=== PATIENT | male | born 1980 | race Caucasian/White ===

== ENCOUNTER 2017-12-10 20:10 | Emergency (ER) | payer SELFPAY ==
--- NOTE | 2017-12-10 21:07 | RADIOLOGY REPORT (SQ) ---
EXAM DESCRIPTION: L SPINE WHOLE COMPLETED DATE/TIME: 12/10/2017 8:55 pm REASON FOR STUDY: low back pain COMPARISON: None. NUMBER OF VIEWS: Five views including obliques. TECHNIQUE: AP, lateral, oblique, and sacral radiographic images acquired of the lumbar spine. LIMITATIONS: None. FINDINGS: MINERALIZATION: Normal. SEGMENTATION: Normal. No transitional anatomy. ALIGNMENT: Mild levo scoliosis in the lower thoracic spine. VERTEBRAE: Maintained height. No fracture or worrisome bone lesion. DISCS: Preserved height. No significant osteophytes or end plate irregularity. POSTERIOR ELEMENTS: Pedicles and facets are intact. No pars defect or posterior arch defects. HARDWARE: None in the spine. PARASPINAL SOFT TISSUES: Normal. PELVIS: Intact as visualized. No fractures or worrisome bone lesions. SI joints intact. OTHER: No other significant finding. IMPRESSION: Mild lower thoracic scoliosis. TECHNICAL DOCUMENTATION: JOB ID: [id number] [employer]- All Rights Reserved Reading location - IP/workstation name: [email or web address]
[2017-12-10] MEDS ORDERED: KETOROLAC TROMETHAMINE INJ/PF 30 MG/1 ML SDV IM ONE (22:04)
--- NOTE | 2017-12-10 22:09 | ER Document Report ---
ED Neck/Back Problem - General Chief Complaint: Low Back Pain Stated Complaint: LOWER BACK PAIN Time Seen by Provider: 12/10/17 20:31 Mode of Arrival: Ambulatory Information source: Patient TRAVEL OUTSIDE OF THE [place] IN LAST 30 DAYS: No - HPI Patient complains to provider of: Pain, Lower back Notes: Patient is here with complaints of low back pain. He states that it has been hurting for about a month and a half now. No specific injury. The pain seems to be intermittent. In the left lower back radiating into the left butt cheek. No trauma. No fall. He denies any abdominal pain. He denies any nausea, vomiting, diarrhea. No dysuria or hematuria. Pain is worse with certain movements, better with rest. States that he recently moved back here from [place] is been sleeping on an air mattress. He denies any chest pain or shortness of breath. He denies any bowel or bladder dysfunction. He denies IV drug use. He denies diabetes. He denies any immunosuppression. Is been taking ibuprofen occasionally which seems to help sometimes with the pain. He denies any unilateral numbness, tingling, weakness. No fevers. He denies any other complaints at this time. Past Medical History - Social History Smoking Status: Current Every Day Smoker Chew tobacco use (# tins/day): No Frequency of alcohol use: None Drug Abuse: None Family History: Reviewed & Not Pertinent Patient has suicidal ideation: No Patient has homicidal ideation: No Renal/ Medical History: Denies: Hx Peritoneal Dialysis Review of Systems - Review of Systems -: Yes All other systems reviewed and negative Physical Exam - Vital signs Vitals: Temp Pulse Resp BP Pulse Ox 98.4 F 83 20 131/78 H 95 12/10/17 20:15 12/10/17 20:15 12/10/17 20:15 12/10/17 20:15 12/10/17 20:15 - Notes Notes: GENERAL: alert, cooperative, nontoxic, no distress. HEAD: normocephalic, atraumatic EYES: conjunctiva pink without discharge, no external redness or swelling. EARS: no external swelling, no external redness NOSE: atraumatic, no external swelling MOUTH/THROAT: mucous membranes moist and pink, posterior pharynx without erythema, swelling, exudate. No trismus or drooling. NECK: soft, supple, full range of motion, no meningismus. CHEST: no distress, lungs clear and equal throughout. No wheezing, rales, rhonchi. CARDIAC: regular rate and rhythm, no murmur, normal capillary refill, normal pulses. No peripheral edema noted. ABDOMEN: soft, nontender, no pusatile mass. BACK: No CVA tenderness. Mild tenderness palpation of the left lumbar paraspinal muscles. No midline tenderness step-offs or crepitus. Full range of motion. EXTREMITIES: full range of motion of all extremities. No redness, no swelling. NEURO: alert and oriented A&O x 3, no focal deficits, full range of motion of all extremities. 5 out of 5 flexion and extension of the lower extremities bilaterally. Patellar and Achilles deep tendon reflexes are +2 bilaterally. Normal sensation with no saddle anesthesia. Patient can dorsiflex the great toes bilaterally. PYSCH: appropriate mood, affect. Patient is cooperative. SKIN: pink, warm, dry, no rash. Course - Re-evaluation Re-evalutation: 12/10/17 22:07 Patient is nontoxic-appearing with stable vitals. Is here with complaints of low back pain intermittently for about a month and a half now. He recently moved here from [place] been sleeping on an air mattress. He denies any specific injury or fall. He has no sign or risk of cauda equina, epidural abscess/bleed, osteomyelitis, discitis, AAA, pyelonephritis. He has a nonfocal exam with no neurological deficits. No abdominal pain or tenderness. He has some mild tenderness to the lumbar paraspinal muscles. X-ray shows some mild scoliosis of the thoracic spine but no acute abnormalities. Patient likely is experiencing some muscular skeletal back pain, potentially from a combination of having scoliosis and sleeping on an air mattress. The patient will be discharged home with a prescription for Naprosyn. He is instructed to get established with a primary care doctor. Follow-up if not better in the next week, sooner for worsening pain, fever, numbness, tingling, weakness, difficulty controlling bowels or bladder, or for any further concerns. The patient is noted to have elevated blood pressure during today's emergency department visit. The patient was informed of this finding. The patient was instructed that this may be related to pre-hypertension and requires further evaluation with a primary care provider. The patient has no hypertensive symptoms at this time. The patient's emergency department workup and current diagnosis were explained to the patient and or family. Follow-up instructions were provided. Medications if prescribed were discussed. Instructions for when to return to the emergency department including specific worrisome symptoms were discussed with the patient and/or family. - Vital Signs Vital signs: Temp Pulse Resp BP Pulse Ox 98.4 F 83 20 131/78 H 95 12/10/17 20:15 12/10/17 20:15 12/10/17 20:15 12/10/17 20:15 12/10/17 20:15 - Diagnostic Test Radiology reviewed: Image reviewed, Reports reviewed - Thoracic scoliosis, no acute abnormality of the lumbar spine. Discharge - Discharge Clinical Impression: Low back pain Qualifiers: Chronicity: chronic Back pain laterality: left Sciatica presence: with sciatica Sciatica laterality: sciatica of left side Qualified Code(s): M54.42 - Lumbago with sciatica, left side; G89.29 - Other chronic pain; G89.29 - Other chronic pain Condition: Stable Disposition: HOME, SELF-CARE Instructions: Low Back Pain ([facility]) Additional Instructions: Take medications as prescribed. Do not take ibuprofen or Advil while taking this medication. Take Tylenol as needed for pain. Apply ice or heat to sore area. Get established with a primary care doctor at the next available appointment. Follow-up sooner for worsening pain, fever, numbness, tingling, weakness, bowel or bladder dysfunction, abdominal pain, persistent vomiting, or for any further concerns. Your blood pressure was elevated during today's visit. Have this rechecked with your doctor. Prescriptions: Naproxen [Naprosyn] 500 mg PO BID #20 tablet Forms: Elevated Blood Pressure, Smoking Cessation Education Referrals: [facility] [Provider Group] - Follow up as needed
[2017-12-10 22:30] VITALS: BP 129/78
== END 2017-12-10 22:29 | disposition home or self-care (01) ==
LOC: ER 20:10
DX: M54.5 Low back pain (principal); G89.29 Other chronic pain; M41.9 Scoliosis, unspecified; R03.0 Elevated blood-pressure reading, without diagnosis of hypertension; F17.200 Nicotine dependence, unspecified, uncomplicated
CPT/HCPCS: 99283; 96372; 72110; J1885

== ENCOUNTER 2018-10-03 23:24 | Emergency (ER) | payer OTHER ==
--- NOTE | 2018-10-04 01:11 | ER Document Report ---
ED Medical Screen (RME) - General Chief Complaint: Chemical Exposure Stated Complaint: WC/CHEMICAL EXPOSURE Time Seen by Provider: 10/04/18 01:06 Notes: Patient is a 37-year-old male that comes emergency department for chief complaint of right-sided chest discomfort. 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 He denies shortness of breath, swelling of the throat or tongue, irritation of the eyes. He smokes, he denies any medical history diagnosed. TRAVEL OUTSIDE OF THE [place] IN LAST 30 DAYS: No Past Medical History - Social History Chew tobacco use (# tins/day): No Frequency of alcohol use: Social Drug Abuse: None Renal/ Medical History: Denies: Hx Peritoneal Dialysis Physical Exam - Vital signs Vitals: Temp Pulse Resp BP Pulse Ox 97.7 F 71 20 129/80 H 96 10/03/18 23:33 10/03/18 23:33 10/03/18 23:33 10/03/18 23:33 10/03/18 23:33 - Respiratory Respiratory status: No respiratory distress Chest status: Tender - right sided Breath sounds: No: Decreased air movement, Wheezing Course - Re-evaluation Re-evalutation: Patient reporting mild right-sided chest discomfort. There is some pain with palpation over the right side of the chest as well. Perform a chest x-ray and EKG. Patient without tachypnea, wheezing, or signs of distress. No signs of allergic reaction. I have greeted and performed a rapid initial assessment of this patient. A comprehensive ED assessment and evaluation of the patient, analysis of test results and completion of the medical decision making process will be conducted by additional ED providers. - Vital Signs Vital signs: Temp Pulse Resp BP Pulse Ox 97.7 F 71 20 129/80 H 96 10/03/18 23:33 10/03/18 23:33 10/03/18 23:33 10/03/18 23:33 10/03/18 23:33
--- NOTE | 2018-10-04 01:58 | RADIOLOGY REPORT (SQ) ---
XR CHEST 2 VIEWS HISTORY: Right-sided chest pain. COMPARISON: None. FINDINGS: The heart size is normal. No consolidation, pleural effusion, or pneumothorax is seen. Moderate dextroconvex curvature of the thoracic spine is noted. No displaced rib fractures are seen. IMPRESSION: 1. No evidence of acute cardiopulmonary disease. 2. No displaced rib fractures are seen. However, if there is high concern for acute injury, consider dedicated rib series or noncontrast chest CT scan.
--- NOTE | 2018-10-04 03:20 | ER Document Report ---
ED General - General Chief Complaint: Chemical Exposure Stated Complaint: WC/CHEMICAL EXPOSURE Time Seen by Provider: 10/04/18 01:06 Notes: Patient is a 37-year-old male current everyday smoker, no chronic medical problems presents with concerns of difficulty breathing while being exposed to acrylic at his job. States that his symptoms started relatively abruptly, were constant in onset but have now resolved. Describes him as being severe when present. Patient states that he no longer has symptoms after being away from the irritant but when he was around the chemical he states that he felt somewhat short of breath, had coughing. In triage he stated that he had chest discomfort but denies this to me. Nothing seems to make his symptoms go away other than getting away from the exposure. He denies history of similar symptoms in the past. No known history of asthma. Does continue to smoke. TRAVEL OUTSIDE OF THE [place] IN LAST 30 DAYS: No Past Medical History - General Information source: Patient - Social History Smoking Status: Current Every Day Smoker Chew tobacco use (# tins/day): No Frequency of alcohol use: Social Drug Abuse: None Family History: Reviewed & Not Pertinent Patient has suicidal ideation: No Patient has homicidal ideation: No Renal/ Medical History: Denies: Hx Peritoneal Dialysis Review of Systems - Review of Systems Notes: Constitutional: Negative for fever. HENT: Negative for sore throat. Eyes: Negative for visual changes. Cardiovascular: Negative for chest pain. Respiratory: Positive for shortness of breath now resolved Gastrointestinal: Negative for abdominal pain, vomiting or diarrhea. Genitourinary: Negative for dysuria. Musculoskeletal: Negative for back pain. Skin: Negative for rash. Neurological: Negative for headaches, weakness or numbness. 10 point ROS negative except as marked above and in HPI. Physical Exam - Vital signs Vitals: Temp Pulse Resp BP Pulse Ox 97.7 F 71 20 129/80 H 96 10/03/18 23:33 10/03/18 23:33 10/03/18 23:33 10/03/18 23:33 10/03/18 23:33 Interpretation: Normal Notes: PHYSICAL EXAMINATION: GENERAL: Well-appearing, well-nourished and in no acute distress. HEAD: Atraumatic, normocephalic. EYES: Pupils equal round and reactive to light, extraocular movements intact, sclera anicteric, conjunctiva are normal. ENT: nares patent, oropharynx clear without exudates. Moist mucous membranes. NECK: Normal range of motion, supple without lymphadenopathy LUNGS: Breath sounds clear to auscultation bilaterally and equal. No wheezes rales or rhonchi. HEART: Regular rate and rhythm without murmurs ABDOMEN: Soft, nontender, normoactive bowel sounds. No guarding, no rebound. No masses appreciated. EXTREMITIES: Normal range of motion, no pitting or edema. No cyanosis. NEUROLOGICAL: No focal neurological deficits. Moves all extremities spontaneously and on command. PSYCH: Normal mood, normal affect. SKIN: Warm, Dry, normal turgor, no rashes or lesions noted. 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 He states that now that he has been away from the exposure he no longer has any symptoms would like to go home. He is not having any labored breathing on exam, saturations within acceptable ranges. No tachycardia or tachypnea. Denies chest pain to me although apparently reported this to the triage physician quality control assistant. Chest x-ray is clear. EKG unremarkable. Suspect likely reactive airway in the setting of exposure to noxious fumes. Patient states that he is going to quit this worksite and not go back I have advised that he could likely use a respirator but he does not seem interested in this. At this time will discharge with return precautions and follow-up recommendations. Verbal discharge instructions given a the bedside a nd opportunity for questions given. Medication warnings reviewed. Patient is in agreement with this plan and has verbalized understanding of return precautions and the need for primary care follow-up in the next 24-72 hours. - Vital Signs Vital signs: Temp Pulse Resp BP Pulse Ox 98.9 F 69 17 131/79 H 97 10/04/18 03:36 10/04/18 03:36 10/04/18 03:36 10/04/18 03:36 10/04/18 03:36 - Diagnostic Test Radiology reviewed: Image reviewed, Reports reviewed Radiology results interpreted by me: 10/04/18 03:19 Chest x-ray: No acute infiltrate or pneumothorax Discharge - Discharge Clinical Impression: Shortness of breath Reactive airway disease Qualifiers: Asthma severity: mild Asthma persistence: intermittent Asthma complication type: uncomplicated Qualified Code(s): J45.20 - Mild intermittent asthma, uncomplicated Condition: Good Disposition: HOME, SELF-CARE Additional Instructions: Your chest x-ray and exam are normal today. Please wear a respirator while at work which would likely prevent her symptoms. Return for any additional concerns he may have including shortness of breath, persistent coughing, passing out, or any other symptoms that are worrisome to you.
[2018-10-04 03:37] VITALS: BP 131/79
--- NOTE | 2018-10-04 09:52 | EKG REPORT ---
SEVERITY:- NORMAL ECG - SINUS RHYTHM : Confirmed by: An Carrero 04-Oct-2018 09:51:32
== END 2018-10-04 03:37 | disposition home or self-care (01) ==
LOC: ER 23:24
DX: J45.20 Mild intermittent asthma, uncomplicated (principal); R06.00 Dyspnea, unspecified; R06.02 Shortness of breath; F17.200 Nicotine dependence, unspecified, uncomplicated; Y99.0 Civilian activity done for income or pay
CPT/HCPCS: 71046; 93005; 93010; 99283

== ENCOUNTER 2019-09-25 06:35 | Emergency (ER) | payer SELFPAY ==
--- NOTE | 2019-09-25 07:01 | ER Document Report ---
ED General - General Chief Complaint: Headache Stated Complaint: COUGH,SHORTNESS OF BREATH Time Seen by Provider: 09/25/19 06:40 Notes: Patient is a 38-year-old male that comes emergency department for chief complaint of "just feeling kind of bad". He states that he had some aches in his back, and a mild headache, he took ibuprofen this morning without eating after he had been drinking tequila last night, he states that he started feeling queasy, got nauseated, felt a discomfort in his abdomen and up into the chest with this which started to make him feel slightly short of breath. He also states his eye especially on the right has been dry this morning. He denies eye pain, visual loss, discharge from the eye, sore throat, or any current symptoms. He denies recent travel, fever/chills, ill exposures. He denies any daily medications, smoking, recreational drugs, surgeries, or diagnosed medical history. He denies any current symptoms. TRAVEL OUTSIDE OF THE [place] IN LAST 30 DAYS: No - Related Data Allergies/Adverse Reactions: No Known Allergies Allergy (Unverified 09/25/19 06:47) Past Medical History - General Information source: Patient - Social History Smoking Status: Never Smoker Chew tobacco use (# tins/day): No Frequency of alcohol use: Social Drug Abuse: None Lives with: Family Family History: Reviewed & Not Pertinent Patient has suicidal ideation: No Patient has homicidal ideation: No - Medical History Medical History: Negative Renal/ Medical History: Denies: Hx Peritoneal Dialysis Surgical Hx: Negative - Immunizations Immunizations up to date: Yes Hx Diphtheria, Pertussis, Tetanus Vaccination: Yes Review of Systems - Review of Systems Constitutional: See HPI EENT: See HPI Cardiovascular: See HPI Respiratory: See HPI Gastrointestinal: See HPI Genitourinary: No symptoms reported Male Genitourinary: No symptoms reported Musculoskeletal: No symptoms reported Skin: No symptoms reported Hematologic/Lymphatic: No symptoms reported Neurological/Psychological: No symptoms reported Physical Exam - Vital signs Vitals: Temp Pulse Resp BP Pulse Ox 97.5 F 57 L 16 126/81 H 100 09/25/19 06:45 09/25/19 06:45 09/25/19 06:45 09/25/19 06:45 09/25/19 06:45 - Notes Notes: GENERAL: Alert, interacts well. No acute distress. HEAD: Normocephalic, atraumatic. EYES: Pupils equal, round, and reactive to light. Extraocular movements intact. ENT: Oral mucosa moist, tongue midline. Oropharynx unremarkable. Airway patent. Nares patent, sinuses non-tender, ear canals unremarkable, TM's intact. NECK: Full range of motion. Supple. Trachea midline. No lymphadenopathy. LUNGS: Clear to auscultation bilaterally, no wheezes, rales, or rhonchi. No respiratory distress. Non-tender chest wall. HEART: Borderline bradycardia, normal rhythm. No murmur ABDOMEN: Soft, non-tender. Non-distended. Bowel sounds present in all 4 quadrants. GENITOURINARY: Deferred EXTREMITIES: Moves all 4 extremities spontaneously. No edema, normal radial and dorsalis pedis pulses bilaterally. No cyanosis. BACK: no cervical, thoracic, lumbar midline tenderness. No saddle anesthesia, normal distal neurovascular exam. Moves all extremities in full range of motion. NEUROLOGICAL: Alert and oriented x3. Normal speech. Cranial nerves II through XII grossly intact. Strength 5/5 in all extremities. PSYCH: Normal affect, normal mood. SKIN: Warm, dry, normal turgor. No rashes or lesions noted. Course - Re-evaluation Re-evalutation: Patient talkative, well-appearing, no current symptoms. Patient with a clinical picture of suspected gastritis, possible esophageal spasm (took ibuprofen after drinking last night without eating anything, developed transient symptoms which resolved). EKG and chest X performed and negative. Discussed with patient. No additional test will be performed at this time based on our very low suspicion of intrathoracic etiology, heart score is 0, discussed recommendations for symptoms, follow-up, and return precautions. Patient states appreciation and agreement. - Vital Signs Vital signs: Temp Pulse Resp BP Pulse Ox 97.5 F 57 L 16 126/81 H 100 09/25/19 06:45 09/25/19 06:45 09/25/19 06:45 09/25/19 06:45 09/25/19 06:45 - EKG Interpretation by Me Additional EKG results interpreted by me: EKG sinus rhythm with borderline bradycardia at a rate of 58, QTC 386, MS interval 144. Normal axis. No T wave inversions or ST segment changes in consecutive leads. Machine reads as normal. Discharge - Discharge Clinical Impression: Nausea Abdominal pain Qualifiers: Abdominal location: generalized Qualified Code(s): R10.84 - Generalized abdominal pain Chest pain Qualifiers: Chest pain type: unspecified Qualified Code(s): R07.9 - Chest pain, unspecified Disposition: HOME, SELF-CARE Additional Instructions: Your evaluation, imaging, and EKG do not show any concerning findings at this time. In the future I recommend after drinking any alcohol or substance irritating to the stomach that you eat before using caffeine or taking NSAIDs such as ibuprofen. These can be very irritating to your esophagus and stomach, this can cause pain, nausea, and vomiting. I recommend bland food today, Pepcid to help recovery, Zofran if needed for nausea. Follow-up with primary care for additional patient. Return if you worsen including vomiting, return or worsening abdominal or chest pain, fever, difficulty breathing, or any other concerning or worsening symptoms. Prescriptions: Famotidine [Pepcid 20 mg Tablet] 20 mg PO BID #12 tablet Ondansetron [Zofran Odt 4 mg Tablet] 1 - 2 tab PO Q4H PRN #15 tab.rapdis PRN Reason: For Nausea/Vomiting Forms: Return to Work
--- NOTE | 2019-09-25 07:38 | RADIOLOGY REPORT (SQ) ---
EXAM DESCRIPTION: XR CHEST 1 VIEW COMPLETED DATE/TME: 09/25/2019 06:57 CLINICAL HISTORY: chest pain COMPARISON: 10/04/2018 FINDINGS: Single frontal view of the chest. Cardiomediastinal silhouette: Normal size and contour. Lungs: No consolidation, pneumothorax, or pleural effusion. Bones: Dextroconvex scoliosis of the thoracic spine. Upper abdomen: No abnormality identified. IMPRESSION: 1. No acute pulmonary process identified.
[2019-09-25 07:46] VITALS: BP 129/77
--- NOTE | 2019-09-25 09:35 | EKG REPORT ---
SEVERITY:- NORMAL ECG - SINUS RHYTHM : Confirmed by: An Carrero 25-Sep-2019 09:35:09
== END 2019-09-25 07:46 | disposition home or self-care (01) ==
LOC: ER 06:35
DX: R10.84 Generalized abdominal pain (principal); R11.0 Nausea; R07.9 Chest pain, unspecified; R51 Headache; M54.9 Dorsalgia, unspecified; R06.02 Shortness of breath
CPT/HCPCS: 71045; 93005; 93010; 99284